=== PATIENT | male | born 1950 | race Caucasian/White ===

== ENCOUNTER 2017-06-25 10:15 | Emergency (ER) | payer OTHER ==
[~2017-06-25] VITALS: Ht 175.3 cm; Wt 67.1 kg
[2017-06-25 13:29] VITALS: BP 126/77
[2017-06-25 14:25] LABS: Post Vast-Slide Made Yes
[2017-06-25 14:26] LABS: Post Vast-Wet Mount Sperm Absent
== END 2017-06-25 13:32 | disposition home or self-care (01) ==
LOC: ER 10:15
DX: N50.89 Other specified disorders of the male genital organs (principal); I25.10 Atherosclerotic heart disease of native coronary artery without angina pectoris; I10 Essential (primary) hypertension; I25.2 Old myocardial infarction; E07.9 Disorder of thyroid, unspecified; Z98.61 Coronary angioplasty status
CPT/HCPCS: 76870; 89321; 99285; J7030

== ENCOUNTER → 2018-02-27 | Outpatient (CLI) | payer OTHER ==
[2018-02-27 08:18] LABS: Basophils # (auto) 0 uL; Basophils % (auto) 0.5 % (0.0-2.0); Eosinophils # (auto) 0.1 uL; Hematocrit 43.6 % (41.0-53.0); Hemoglobin 14.3 g/dL (13.5-17.5); Lymphocytes # (auto) 0.6 uL; Lymphocytes % (auto) 8.4 % (10.0-50.0); Mean Corpuscular Hgb Conc. 32.9 g/dL (32.0-36.0); Mean Corpuscular Volume 94.4 fL (80.0-100.0); Monocytes # (auto) 0.5 uL; Monocytes % (auto) 8.1 % (0.0-12.0); Neutrophils # (auto) 5.5 uL; Platelet Count (auto) 199 10^3/uL (140-450); Red Blood Cells 4.61 10^6/uL (4.5-5.90); White Blood Cell 6.7 10^3/uL (4.4-10.8)
[2018-02-27 09:12] LABS: Albumin 4.1 g/dL (3.4-5.0); Bilirubin, Total 0.6 mg/dL (0.2-1.0); Calcium 9.3 mg/dL (8.5-10.1); Potassium 4.9 mmol/L (3.5-5.1); Total Protein 7.4 g/dL (6.4-8.2)
== END | disposition home or self-care (01) ==
LOC: LAB 07:31
PROVIDERS: ATTEND Physician Assistant
DX: M1A.09X0 Idiopathic chronic gout, multiple sites, without tophus (tophi) (principal); I12.9 Hypertensive chronic kidney disease with stage 1 through stage 4 chronic kidney disease, or unspecified chronic kidney disease; N18.3 Chronic kidney disease, stage 3 (moderate); I21.19 ST elevation (STEMI) myocardial infarction involving other coronary artery of inferior wall; J84.10 Pulmonary fibrosis, unspecified; E03.8 Other specified hypothyroidism; Z90.5 Acquired absence of kidney
CPT/HCPCS: 36415; 80053; 80061; 84153; 84443; 84550; 85025

== ENCOUNTER → 2018-09-16 | Outpatient (CLI) | payer OTHER ==
[2018-09-16 10:58] LABS: Urine WBC None Seen /hpf (0 - 3)
[2018-09-16 11:14] LABS: Basophils # (auto) 0 uL; Basophils % (auto) 0.7 % (0.0-2.0); Eosinophils # (auto) 0.1 uL; Eosinophils % (auto) 1.3 % (0.0-7.0); Hematocrit 42.9 % (41.0-53.0); Hemoglobin 14.4 g/dL (13.5-17.5); Lymphocytes # (auto) 0.7 uL; Lymphocytes % (auto) 9.8 % (10.0-50.0); Mean Corpuscular Hemoglobin 31.4 pg (28.0-32.0); Mean Corpuscular Hgb Conc. 33.5 g/dL (32.0-36.0); Mean Corpuscular Volume 93.6 fL (80.0-100.0); Monocytes # (auto) 0.4 uL; Monocytes % (auto) 6.6 % (0.0-12.0); Neutrophils # (auto) 5.4 uL; Neutrophils % (auto) 81.6 % (37.0-80.0); Platelet Count (auto) 279 10^3/uL (140-450); Red Blood Cells 4.58 10^6/uL (4.5-5.90); Red Cell Distribution Width 13.7 % (11.8-14.3); White Blood Cell 6.7 10^3/uL (4.4-10.8)
[2018-09-16 11:25] LABS: Albumin 3.8 g/dL (3.4-5.0); Calcium 8.8 mg/dL (8.5-10.1); Potassium 4.9 mmol/L (3.5-5.1)
[2018-09-16 11:27] LABS: Phosphorus 2.1 mg/dL (2.5-4.90); Uric Acid 5.6 mg/dL (3.5-7.2)
[2018-09-16 11:28] LABS: Creatinine, Urine 20 mg/dL (30.0-125.0); Protein, Urine < 5.0 mg/dL (0.0-11.9)
[2018-09-16 11:36] LABS: Urine Bacteria NONE SEEN /hpf (None Seen); Urine Blood Negative /uL (Negative); Urine Specific Gravity 1.004 (1.001-1.035)
== END | disposition home or self-care (01) ==
LOC: LAB 10:21
PROVIDERS: ATTEND Internal Medicine
DX: I12.9 Hypertensive chronic kidney disease with stage 1 through stage 4 chronic kidney disease, or unspecified chronic kidney disease (principal); N18.3 Chronic kidney disease, stage 3 (moderate); D63.1 Anemia in chronic kidney disease; E21.3 Hyperparathyroidism, unspecified; E78.3 Hyperchylomicronemia; R80.9 Proteinuria, unspecified; E55.9 Vitamin D deficiency, unspecified; M10.9 Gout, unspecified
CPT/HCPCS: 36415; 80069; 81001; 82306; 82570; 83970; 84156; 84550; 85025